=== PATIENT | female | born 1945 | race Caucasian/White ===

== ENCOUNTER 2016-08-31 14:19 | Emergency (ER) | payer OTHER, MEDICARE ==
[~2016-08-31] VITALS: Ht 167.6 cm; Wt 71.0 kg
[2016-08-31 14:24] VITALS: TEMP 37
[2016-08-31] MEDS ORDERED: SODIUM CHLORIDE 0.9% 1000ML 1,000 ML IV STA (14:36)
[2016-08-31 15:03] VITALS: Ht 167.6 cm; Wt 71.0 kg
[2016-08-31 15:08] LABS: BASO % 0.6 %; BASO ABS # 0.05 K/uL (0-0.2); COMPLETE YES; EOS % 5.3 %; HEMATOCRIT 33.9 % (37-47); IG% 0.1 %; LYMPH % 19.1 %; LYMPH ABS # 1.56 K/uL (1.2-3.4); MEAN CELL VOLUME 86.7 fL (80-100); MEAN CORPUSCULAR HEMOGLOBIN 26.3 pg (25-34); MEAN CORPUSCULAR HGB CONC 30.4 g/dl (32-36); MEAN PLATELET VOLUME 8.7 fL (7.4-10.4); MONO % 9.2 %; NEUT % 65.7 %; PLATELET COUNT 612 K/uL (130-400); RED BLOOD COUNT 3.91 M/uL (4.2-5.4); WHITE BLOOD COUNT 8.18 K/uL (4.8-10.8)
[2016-08-31 15:20] LABS: INR 1.1 (0.9-1.1); PARTIAL THROMBOPLASTIN RATIO 1.2; PROTHROMBIN TIME (PATIENT) 11.5 SECONDS (9.0-12.0)
[2016-08-31] MEDS ORDERED: ASCA500 PO (15:34)
[2016-08-31] MEDS ORDERED: OMEG10007 PO (15:34)
[2016-08-31] MEDS ORDERED: CYAN100T PO (15:34)
[2016-08-31] MEDS ORDERED: INSPMPHMLG (15:34)
[2016-08-31] MEDS ORDERED: CHOL2000 PO (15:34)
[2016-08-31] MEDS ORDERED: ASPI325T39 PO (15:34)
[2016-08-31 15:35] LABS: ALT/SGPT 23 U/L (12-78); AST/SGOT 26 U/L (15-37); BLOOD UREA NITROGEN 17 mg/dl (7-18); BUN/CREATININE RATIO 15.4 (10-20); CALCIUM 9.2 mg/dl (8.5-10.1); CARBON DIOXIDE 25 mmol/L (21-32); CHLORIDE 111 mmol/L (98-107); GLUCOSE 138 mg/dl (70-99); MAGNESIUM 2.1 mg/dl (1.8-2.4); SODIUM 145 mmol/L (136-145)
[2016-08-31 15:47] LABS: ALKALINE PHOSPHATASE 176 U/L (45-117); C-REACTIVE PROTEIN 1.31 mg/dl (0-0.29); CKMB/CK RATIO 1.7 (0-3.0); THYROID STIMULATING HORMONE 0.763 uIu/ml (0.300-4.500)
--- NOTE | 2016-08-31 16:21 | DIAGNOSTIC IMAGING REPORT ---
CT OF THE HEAD WITHOUT CONTRAST CLINICAL HISTORY: Seizures. Closed head injury. COMPARISON STUDY: No previous studies for comparison. CT DOSE: 601.98 mGy.cm TECHNIQUE: Helical axial images of the head were obtained without IV contrast. Automated exposure control was utilized for the study. FINDINGS: No acute intracranial hemorrhage, midline shift or mass effect is present. There is mild atrophy. Basilar cisterns are patent. Ventricular system is unremarkable. No extra-axial collections present. Santos-white differentiation is maintained. There are no findings to suggest acute dural sinus thrombosis or acute territorial infarct. There is no calvarial fracture. IMPRESSION: 1. No acute intracranial findings. 2. No calvarial fracture. Electronically signed by: Ross Goldsmith M.D. 08/31/2016 4:19 PM Dictated Date/Time: 08/31/2016 4:17 PM
--- NOTE | 2016-08-31 17:36 | DIAGNOSTIC IMAGING REPORT ---
RIGHT LOWER EXTREMITY VENOUS DOPPLER CLINICAL HISTORY: Right leg swelling. Previous internal fixation. COMPARISON STUDY: No previous studies for comparison. TECHNIQUE: Sonography of the deep venous system of the right lower extremity was performed. Compression and augmentation were evaluated. FINDINGS: The right common femoral, superficial femoral and popliteal veins were compressible. Augmentation was normal. Flow was shown within the deep calf vessels. IMPRESSION: No evidence of deep venous thrombus within the right lower extremity. Electronically signed by: Ross Goldsmith M.D. 08/31/2016 5:35 PM Dictated Date/Time: 08/31/2016 5:34 PM
--- NOTE | 2016-08-31 19:34 | DIAGNOSTIC IMAGING REPORT ---
MRI OF THE RIGHT TIBIA AND FIBULA/ANKLE WITHOUT CONTRAST CLINICAL HISTORY: Right ankle surgery. Erythema and swelling. Evaluate for osteomyelitis. COMPARISON STUDY: No previous studies for comparison. TECHNIQUE: Utilizing a 1.5 Trinity magnet and dedicated coil, multiplanar, multi echo imaging of the right tibia and fibula and ankle was performed without intravenous contrast. FINDINGS: This exam is markedly compromised by susceptibility artifact related to the distal right tibial and fibular plate and screws. Evaluation for osteomyelitis of the distal right tibia and fibula is nondiagnostic due to artifact. There is mild subcutaneous edema of the right lower leg. There is also a small amount of fascial fluid within the right lower leg. Abnormal signal is noted within the musculature of the right lower leg with areas of increased T1 and T2 signal. These findings are suboptimally assessed due to significant artifact on this examination. A marker was placed on the skin at site of wound. No associated abscess identified on this noncontrast examination. IMPRESSION: 1. Exam markedly compromised due to susceptibility artifact from the distal right tibial and fibular internal fixation hardware. Nondiagnostic evaluation for osteomyelitis. 2. Mild subcutaneous edema. Abnormal signal within the musculature of the right lower leg. This is nonspecific given the traumatic/postsurgical history. The areas of increased T1 signal could be related to denervation. A superimposed infectious myositis would be difficult to exclude. Mild fascial fluid. No fluid collection to suggest abscess on unenhanced exam. Electronically signed by: Ross Goldsmith M.D. 08/31/2016 7:32 PM Dictated Date/Time: 08/31/2016 7:25 PM
[2016-08-31] MEDS ORDERED: CEFTRIAXONE SOD INJ 1 GM ADDVIAL IV STA (20:33)
[2016-08-31] MEDS ORDERED: AMOX875T PO (21:38)
[2016-08-31 21:43] VITALS: BP 125/71; PULSE 62; O2SAT 94
--- NOTE | 2016-08-31 23:03 | EMERGENCY ROOM VISIT NOTE ---
History Report prepared by Jessy: Jason Magana Under the Supervision of: Dr. Yaw Lloyd M.D. First contact with patient: 14:35 Chief Complaint: INFECTION Stated Complaint: FLUID RIGHT ANKLE BROKEN,DIABETES TROUBLE,R EYE History of Present Illness The patient is a 70 year old female who presents to the Emergency Room with complaints of worsening pain in the right ankle. The patient had surgery on her right leg for a spiral fracture of the right tibia on April 17 of last year. She states that the appearance of the right ankle and the swelling/wound is worsened currently as well. The patient also mentioned several other complaints such as poor blood sugar levels lately, and a history of grand mal seizures. She had a seizure two days ago and notes that she hit her head. After this seizure the patient noticed some significant visual irregularities in her right eye. She does note having a headache currently, but notes that she has had headaches everyday for many years. Pt denies fevers, chills, diaphoresis, visual changes, neck pain, chest pain, breathing difficulties, nausea, vomiting , abdominal pain, back pain, melena, hematochezia, urinary symptoms, numbness, weakness, lymphadenopathy, rash, or other complaints. Source of History: patient, family Position: ankle (right) Timing: worsening Associated Symptoms: + headache Note: patient notes poor blood sugar levels, grand mal seizures and vision irregularities. Review of Systems See HPI for pertinent positives and negatives. A total of ten systems were reviewed and were otherwise negative. Past Medical & Surgical Medical Problems: (1) Diabetes (2) Grand mal seizure Diabetes Grand mal seizure Family History No pertinent family history secondary to age. Social History Smoking Status: Never Smoker Marital Status: Housing Status: lives alone Occupation Status: retired Current/Historical Medications Scheduled Amoxicillin & Pot Clavulanate (Augmentin 875-125 mg), 875 MG PO BID Ascorbic Acid (Vitamin C), 500 MG PO DAILY Aspirin (Aspirin Ec), 8-12 TABS PO DAILY Cholecalciferol (Vitamin D3), 1 CAP PO DAILY Cyanocobalamin (Vitamin B-12), Unknown Dose PO DAILY Fish Oil (Fortuna-3), 1 CAP PO DAILY Insulin Human Lispro (Insulin Humalog Pump ), 1 EA N/A UD Allergies Uncoded Allergies: NATURAL DIURETICS (Allergy, Severe, HALLUCINATIONS, 08/31/16) Physical Exam Vital Signs Date Time Temp Pulse Resp B/P Pulse Ox O2 Delivery O2 Flow Rate FiO2 08/31/16 21:43 62 16 125/71 94 08/31/16 19:31 68 15 130/56 93 Room Air 08/31/16 17:10 08/31/16 15:12 79 08/31/16 15:10 83 19 144/78 Room Air 08/31/16 15:04 Room Air 08/31/16 14:24 37.0 77 18 160/70 97 Room Air Physical Exam GENERAL: Awake, alert, well appearing, no distress HENT: Normocephalic, atraumatic. TM's normal. Oropharynx unremarkable. EYES: PERRL. EOMI. Normal conjunctiva. Sclera non-icteric. NECK: Supple. No nuchal rigidity. FROM. No JVD or bruit. RESPIRATORY: CTA CARDIAC: RRR. No murmur. ABDOMEN: Soft, non distended. No tenderness to palpation. No rebound or guarding. No masses. RECTAL: Deferred. MUSCULOSKELETAL: There is swelling to the right lateral distal aspect of the right leg with surrounding erythema and redness. The right leg is shorter than the left. The leg is tender, warm to touch. Gross motor strength symmetric. NEURO: Cranial nerves 2-12 grossly intact. Normal sensorium. No sensory or motor deficits noted. Speech normal. No pronator drift. SKIN: No rash or jaundice noted. LYMPH: No adenopathy. Medical Decision & Procedures ER Provider Diagnostic Interpretation: Radiology results as stated below per my review and radiologist interpretation: CT OF THE HEAD WITHOUT CONTRAST CLINICAL HISTORY: Seizures. Closed head injury. COMPARISON STUDY: No previous studies for comparison. CT DOSE: 601.98 mGy.cm TECHNIQUE: Helical axial images of the head were obtained without IV contrast. Automated exposure control was utilized for the study. FINDINGS: No acute intracranial hemorrhage, midline shift or mass effect is present. There is mild atrophy. Basilar cisterns are patent. Ventricular system is unremarkable. No extra-axial collections present. Santos-white differentiation is maintained. There are no findings to suggest acute dural sinus thrombosis or acute territorial infarct. There is no calvarial fracture. IMPRESSION: 1. No acute intracranial findings. 2. No calvarial fracture. Electronically signed by: Ross Goldsmith M.D. 08/31/2016 4:19 PM Dictated Date/Time: 08/31/2016 4:17 PM MRI OF THE RIGHT TIBIA AND FIBULA/ANKLE WITHOUT CONTRAST CLINICAL HISTORY: Right ankle surgery. Erythema and swelling. Evaluate for osteomyelitis. COMPARISON STUDY: No previous studies for comparison. TECHNIQUE: Utilizing a 1.5 Trinity magnet and dedicated coil, multiplanar, multi echo imaging of the right tibia and fibula and ankle was performed without intravenous contrast. FINDINGS: This exam is markedly compromised by susceptibility artifact related to the distal right tibial and fibular plate and screws. Evaluation for osteomyelitis of the distal right tibia and fibula is nondiagnostic due to artifact. There is mild subcutaneous edema of the right lower leg. There is also a small amount of fascial fluid within the right lower leg. Abnormal signal is noted within the musculature of the right lower leg with areas of increased T1 and T2 signal. These findings are suboptimally assessed due to significant artifact on this examination. A marker was placed on the skin at site of wound. No associated abscess identified on this noncontrast examination. IMPRESSION: 1. Exam markedly compromised due to susceptibility artifact from the distal right tibial and fibular internal fixation hardware. Nondiagnostic evaluation for osteomyelitis. 2. Mild subcutaneous edema. Abnormal signal within the musculature of the right lower leg. This is nonspecific given the traumatic/postsurgical history. The areas of increased T1 signal could be related to denervation. A superimposed infectious myositis would be difficult to exclude. Mild fascial fluid. No fluid collection to suggest abscess on unenhanced exam. Electronically signed by: Ross Goldsmith M.D. 08/31/2016 7:32 PM Dictated Date/Time: 08/31/2016 7:25 PM RIGHT LOWER EXTREMITY VENOUS DOPPLER CLINICAL HISTORY: Right leg swelling. Previous internal fixation. COMPARISON STUDY: No previous studies for comparison. TECHNIQUE: Sonography of the deep venous system of the right lower extremity was performed. Compression and augmentation were evaluated. FINDINGS: The right common femoral, superficial femoral and popliteal veins were compressible. Augmentation was normal. Flow was shown within the deep calf vessels. IMPRESSION: No evidence of deep venous thrombus within the right lower extremity. Electronically signed by: Ross Goldsmith M.D. 08/31/2016 5:35 PM Dictated Date/Time: 08/31/2016 5:34 PM Laboratory Results 08/31/16 14:50 Red Blood Count 3.91, Mean Corpuscular Volume 86.7, Mean Corpuscular Hemoglobin 26.3, Mean Corpuscular Hemoglobin Concent 30.4, Mean Platelet Volume 8.7, Neutrophils (%) (Auto) 65.7, Lymphocytes (%) (Auto) 19.1, Monocytes (%) (Auto) 9.2, Eosinophils (%) (Auto) 5.3, Basophils (%) (Auto) 0.6, Neutrophils # (Auto) 5.38, Lymphocytes # (Auto) 1.56, Monocytes # (Auto) 0.75, Eosinophils # (Auto) 0.43, Basophils # (Auto) 0.05 08/31/16 14:50 Test 08/31/16 14:50 08/31/16 14:56 White Blood Count 8.18 K/uL (4.8-10.8) Red Blood Count 3.91 M/uL (4.2-5.4) Hemoglobin 10.3 g/dL (12.0-16.0) Hematocrit 33.9 % (37-47) Mean Corpuscular Volume 86.7 fL (80-100) Mean Corpuscular Hemoglobin 26.3 pg (25-34) Mean Corpuscular Hemoglobin Concent 30.4 g/dl (32-36) Platelet Count 612 K/uL (130-400) Mean Platelet Volume 8.7 fL (7.4-10.4) Neutrophils (%) (Auto) 65.7 % Lymphocytes (%) (Auto) 19.1 % Monocytes (%) (Auto) 9.2 % Eosinophils (%) (Auto) 5.3 % Basophils (%) (Auto) 0.6 % Neutrophils # (Auto) 5.38 K/uL (1.4-6.5) Lymphocytes # (Auto) 1.56 K/uL (1.2-3.4) Monocytes # (Auto) 0.75 K/uL (0.11-0.59) Eosinophils # (Auto) 0.43 K/uL (0-0.5) Basophils # (Auto) 0.05 K/uL (0-0.2) RDW Standard Deviation 45.8 fL (36.4-46.3) RDW Coefficient of Variation 14.8 % (11.5-14.5) Immature Granulocyte % (Auto) 0.1 % Immature Granulocyte # (Auto) 0.01 K/uL (0.00-0.02) Erythrocyte Sedimentation Rate 39 mm/hr (0-21) Prothrombin Time 11.5 SECONDS (9.0-12.0) Prothromb Time International Ratio 1.1 (0.9-1.1) Activated Partial Thromboplast Time 31.9 SECONDS (21.0-31.0) Partial Thromboplastin Ratio 1.2 Anion Gap 9.0 mmol/L (3-11) Est Creatinine Clear Calc Drug Dose 48.2 ml/min Estimated GFR () 58.9 Estimated GFR (Non- 50.8 BUN/Creatinine Ratio 15.4 (10-20) Calcium Level 9.2 mg/dl (8.5-10.1) Magnesium Level 2.1 mg/dl (1.8-2.4) Total Bilirubin 0.3 mg/dl (0.2-1) Direct Bilirubin < 0.1 mg/dl (0-0.2) Aspartate Amino Transf (AST/SGOT) 26 U/L (15-37) Alanine Aminotransferase (ALT/SGPT) 23 U/L (12-78) Alkaline Phosphatase 176 U/L (45-117) Total Creatine Kinase 118 U/L (26-192) Creatine Kinase MB 2.0 ng/ml (0.5-3.6) Creatine Kinase MB Ratio (0-3.0) Troponin I < 0.015 ng/ml (0-0.045) C-Reactive Protein 1.31 mg/dl (0-0.29) Total Protein 7.8 gm/dl (6.4-8.2) Albumin 3.5 gm/dl (3.4-5.0) Procalcitonin < 0.05 ng/ml (0-0.5) Thyroid Stimulating Hormone (TSH) 0.763 uIu/ml (0.300-4.500) Bedside Lactic Acid Venous 0.75 mmol/L (0.90-1.70) Laboratory results reviewed by me Medications Administered Medications (Trade) Dose Ordered Sig/Lakesha Route Start Time Stop Time Status Last Admin Dose Admin Sodium Chloride (Nss 1000ml) 1,000 ml @ 125 mls/hr Q8H STAT IV 08/31/16 14:36 08/31/16 22:02 DC 08/31/16 15:15 125 MLS/HR Ceftriaxone Sodium (Rocephin Inj) 1 gm NOW STAT IV 08/31/16 20:33 08/31/16 20:34 DC 08/31/16 20:59 1 GM ECG Indication: other (Seizures ) Rate (beats per minute): 78 Rhythm: normal sinus Findings: no acute ischemic change, no ectopy ED Course 1436: The patient was evaluated in room C9. A complete history and physical exam was performed. 1435: Ordered Sodium Chloride 1000 mL @ 125 mL/hr IV. 2032: Ordered Rocephin 1 gm IV. 2033: I reevaluate the patient at this time, she is feeling well. 2138: I reevaluated the patient. Discussed results and discharge instructions: She verbalized understanding and agreement. The patient is ready for discharge. Medical Decision Triage Nursing notes reviewed. The patient's presentation and history were concerning for multiple complaints listed above but most notably the right leg swelling. Etiologies such as DVT, osteomyelitis, cellulitis, wound infection, metabolic, infection, hypo/hyperglycemia, electrolyte abnormalities, cardiac sources, intracerebral event, toxicologic, neurologic, as well as others were entertained. The patient was evaluated. She had many issues that were ongoing. Because of the leg swelling and redness I had concerns for possible DVT. Ultrasound was done and was negative. The patient had erythema. This was concerning for cellulitis. Given the surgery I also concerns for possible osteomyelitis. The patient had a mild elevation of ESR and CRP. A MRI was performed. This was nondiagnostic for osteomyelitis but there was soft tissue infection. This raised concerns for myositis versus cellulitis. Given the redness of the skin the patient was given IV Rocephin. She will be treated with oral Augmentin. She has an orthopedic appointment tomorrow for follow-up. Given the open wound and her history of diabetes the patient will need wound management. He is management was involved. The patient was referred to the wound center. Her head CT was negative. No signs of bleeding or mass. The patient does not have an urologist and states that she used to be on seizure medication but is not currently taking this. She notes a vague history of seizures. It is difficult to tell exactly what was going on with regards to that. Her ECG was unremarkable. Given her negative head CT additional workup was deferred at this time. She had a mild anemia on CBC. Her coags are negative. Lactate was negative. Her chemistries and LFTs were unremarkable as well. Cardiac markers were negative. The patient and daughter were informed of the findings. She was given referral to neurology, endocrinology, and the wound center. She will follow-up with her PCP and with orthopedics. By the evaluation outlined above other emergent etiologies such as those listed in the differential, as well as others, were deemed relatively unlikely. The patient and daughter were informed about the findings as listed above. All questions were answered and they were pleased with the treatment. Return instructions were outlined and the patient was discharged in stable condition. The chart was completed utilizing [employer] voice recognition software. Grammatical errors, random word insertions, pronoun errors, and incomplete sentences are an occasional consequence of this system due to software limitations, ambient noise, and hardware issues. Any formal questions or concerns about the content, text, or information contained within the body of this dictation should be directly addressed to the physician for clarification. Impression Primary Impression: Cellulitis of right leg Additional Impressions: Open wound of right lower extremity Diabetes Scribe Attestation The scribe's documentation has been prepared under my direction and personally reviewed by me in its entirety. I confirm that the note above accurately reflects all work, treatment, procedures, and medical decision making performed by me. Departure Information Dispostion Home / Self-Care Prescriptions Amoxicillin & Pot Clavulanate (Augmentin 875-125 mg) 1 Tab Tab 875 MG PO BID for 10 Days, #20 TAB Prov: Yaw Lloyd MD 08/31/16 Forms HOME CARE DOCUMENTATION FORM, IMPORTANT VISIT INFORMATION, WORK / SCHOOL INSTRUCTIONS Patient Instructions [facility] Additional Instructions Continue current medications. Amoxicillin Clavulanate (Augmentin) 875mg: Take one pill twice daily for 10 days for your infection. All antibiotics can cause diarrhea. If this occurs and you feel worse or it does not resolve in 1-2 days follow up with your doctor or return to the Emergency Department as this could be signs of serious underlying problems. Any medication can cause an allergic reaction, stop the pills immediately and return to the ER for rash, hives, breathing difficulties, or swelling. Warm compresses for 20 minutes at a time four times daily for 2-3 days. Bacitracin and bandage to wound daily until seen by wound center. Follow-up with your primary clinic this week. Follow-up with the orthopedist as scheduled tomorrow. Call the [facility] at [phone]. Tell them you were in the ER and we want you to have your wound evaluated. Follow-up with Dr. Sherman of neurology as discussed. The number is listed below. Follow-up with Dr. Barron's office as well for diabetes care. Number is listed below Return to the ER immediately for spreading redness, fevers, pus-like drainage, severe pain, or as needed. Problem Qualifiers
== END 2016-08-31 21:44 | disposition home or self-care (01) ==
LOC: C.EDB 14:21 → C.EDC 21:44
DX: L03.115 Cellulitis of right lower limb (principal); S81.801A Unspecified open wound, right lower leg, initial encounter; X58.XXXA Exposure to other specified factors, initial encounter; E11.9 Type 2 diabetes mellitus without complications; G40.409 Other generalized epilepsy and epileptic syndromes, not intractable, without status epilepticus; Z96.41 Presence of insulin pump (external) (internal); Z79.82 Long term (current) use of aspirin; M79.604 Pain in right leg; Z79.899 Other long term (current) drug therapy

== ENCOUNTER → 2017-03-09 | Outpatient (CLI) | payer OTHER, MEDICARE ==
[~2017-03-09] MED LIST: ASCA500 PO; CHOL2000 PO; INSPMPHMLG
--- NOTE | 2017-03-09 15:30 | DIAGNOSTIC IMAGING REPORT ---
R HAND MIN 3 VIEWS HISTORY: 71 years-old Female RIGHT HAND PAIN acute right hand pain without reported trauma COMPARISON: None available TECHNIQUE: 3 views of the right hand FINDINGS: There is no acute fracture or dislocation. Multifocal degenerative changes are noted including mild to moderate radiocarpal, first carpometacarpal and mild interphalangeal degenerative changes throughout the hand. Moderate first DIP joint osteoarthritis. Vascular calcifications are noted. The bones are mildly demineralized. Negative for opaque foreign body. IMPRESSION: 1. Degenerative changes as above without acute osseous abnormality. 2. Osteopenia. 3. Peripheral vascular disease. The above report was generated using voice recognition software. It may contain grammatical, syntax or spelling errors. Electronically signed by: Ciaran Tobar M.D. 03/09/2017 3:29 PM Dictated Date/Time: 03/09/2017 3:27 PM
== END | disposition home or self-care (01) ==
LOC: C.RDSM 14:25
PROVIDERS: ATTEND Physician Assistant
DX: M79.641 Pain in right hand (principal); M85.841 Other specified disorders of bone density and structure, right hand; I73.9 Peripheral vascular disease, unspecified